=== PATIENT | male | born 1980 | race African-American/Black ===

== ENCOUNTER 2016-06-22 12:23 | Inpatient (IN) | payer BC, OTHER ==
--- NOTE | ~2016-06-22 | DS ---
Unit #: [id number] #: [id number] Patient: DARRIUS MORALES [id number] [address] [address] [id number] I MR#: [id number] NAME: DARRIUS MORALES ROOM: [facility] Age: Sex: M Admission Date: 06/22/2016 : 1980 Discharge Date: Attending Physician: Lilia Rodgers M.D. Referring Physician: Self Referral-Refer Use Only Primary Care Physician: [facility] DISCHARGE SUMMARY ADDENDUM FINAL DIAGNOSES 1. Hyperosmolar nonketotic hyperglycemia. 2. Newly diagnosed diabetes mellitus. 3. Acute kidney injury. 4. Alcohol abuse. DISCHARGE MEDICATIONS The plan was to discharge patient home with Invokana. However, Invokana really was too expensive for him. I put patient on Levemir and metformin 70 mg p.o. daily. Levemir will be 20 units subcu q.a.m. DISCHARGE INSTRUCTIONS 1. He will check his sugars q.i.d. 2. Follow up with PCP in the office for medication adjustment. CONDITION ON DISCHARGE He is discharged in stable condition. NOTE Endocrine consult has been deferred. Time spent coordinating discharge as a whole is about 35 minutes. Dictated by... Shy Alvarez/cindy TD: 06/24/2016 16:09 JOB #: [id number] Unit #: [id number] #: [id number] Patient: DARRIUS MORALES DISCHARGE SUMMARY X Radha Pleitez MD X DISCHARGE SUMMARY
--- NOTE | ~2016-06-22 | A ---
[facility] Nutrition Therapy DATE: 06/23/16 Patient: DARRIUS MORALES Physician: DENITA Address: [address] [place] [address] Room/Bed: [address], Zip: [place] [address] Admit Date: 06/22/16 Date of : [birth year] Height: 5 10 Weight: 240 109 NUTRITIONAL ASSESSMENT: REASON: NPO IN ICU ASSESSMENT, ALSO CONSULT RE: DM EDUCATION PT IS 35 Y.O. MALE ADMITTED FOR HIGH ACCU-CHECKS, MARY PMH: HTN, HLD, ETOH ABUSE, SMOKER, NEWLY DIAGNOSED DM AT THIS ADMIT Anthropometrics: 5'10", WT: 240# (109 KG), BMI: 34.4 Labs: GLU: 183, K+:3.2, NA+:131, ALT: 50, A1c: PENDING Meds: KCL, NACL I/O & Bowel function: 2665/751 Skin Integrity: NO KNOWN SKIN ISSUES Estimated Nutrition Needs: N/A Assessment: CHART REVIEWED AND EVENTS NOTED. PT SEEN FOR NPO IN ICU ASSESSMENT. PER RN AND CHART, PT NPO 2' DKA PROTOCOL, PLANS IN PLACE FOR DIET ADVANCEMENT LATER TODAY. OF NOTE, PT NEWLY DIAGNOSED DM AT THIS ADMIT. PT REPORTED GOOD PO INTAKE AND APPETITE, NO C/O N/V/D. PT REPORTS "I AM HUNGRY AND READY TO EAT". PT DENIES ANY RECENT WEIGHT LOSS. THIS RD PROVIDED WRITTEN AND VERBAL CC DIET EDUCATION. RD PROVIDED LIST OF FOODS TO AVOID/LIMIT AND FOODS TO EAT MORE OFTEN WELL ENCOURAGING CONSISTENT MEAL SCHEDULE. RD ALSO EMPHASIZED IMPORTANCE OF LIMITING SUGAR-SWEETENED BEVERAGES. PT REPORTS DRINKING SODAS AND TEA DAILY WELL ONLY CONSUMES 1-2 MEALS DAILY. PT ALSO STATED HE DRINKS A PINT OF ALCOHOL DAILY. PT VERBALIZED UNDERSTANDING OF THE TOPIC. PT REPORTED NO DIET QUESTIONS AT THIS TIME. RD TO REMAIN AVAILABLE AND FOLLOW. Dx: IMPAIRED GLYCEMIC CONTROL R/T CURRENT CONDITION, NEWLY DM AEB ELEVATED BLOOD SUGARS NOTED. -ALTERED NUTRIENT NEEDS R/T DX AEB NPO STATUS. Intervention: 1. NPO (PLANS TO ADVANCE DIET LATER TODAY) 2. RD CONSULT Monitoring, Evaluation and Goals: 1. PO INTAKE; PROVIDE AND CONSUME ADEQUATE NUTRITION W/NO C/O N/V/D (PO>50%) 2. LABS; GLU: IMPROVE GLYCEMIC CONTROL [facility] Therapy DATE: 06/23/16 Patient: DARRIUS MORALES Physician: DENITA Address: [address] [place] [address] Room/Bed: [address], Zip: [place] [address] Admit Date: 06/22/16 Date of : [birth year] Height: 5 10 Weight: 240 109 MONITOR: -DIET ADVANCEMENT -PO INTAKE/APPETITE -EDUCATION NEEDS -WEIGHTS -LABS (GLU, A1c) Recommendations: 1. REPLETE ELECTROLYTES (K+ LOW) 2. ONCE MEDICALLY FEASIBLE, ADVANCE DIET INDICATED TO CC+HH 2' PMH 3. RE-CONSULT RD IF FURTHER DIET EDUCATION REQUESTED/NEEDED RD WILL F/U PER PROTOCOL PT IS MILD/MODERATELY COMPROMISED Respectfully, FRANCIE QUISPE MS, RD, LD Food and Nutritional Services [facility] cc: client file
--- NOTE | ~2016-06-22 | CO ---
Unit #: [id number] #: [id number] Patient: DARRIUS MORALES [id number] [address] [place], [place] [address] [id number] I MR#: [id number] NAME: DARRIUS MORALES ROOM: 4 Age: 35 Sex: M Admission Date: 06/22/2016 : 1980 Attending Physician: Clover Carrington M.D. Primary Care Physician: [facility] Consultation Date: 06/23/2016 CONSULTATION REPORT HISTORY OF PRESENT ILLNESS Mr. Morales is a 35-year-old white male, who was admitted with uncontrolled diabetes and possible obstructive sleep apnea. He does complain of snoring, periodic breathing, and witnessed apnea at night. He does have daytime fatigue. He was admitted to [facility] for treatment and has been transferred to the floor since he is hemodynamically stable. PAST MEDICAL HISTORY Significant for alcohol abuse and hypertension. PAST SURGICAL HISTORY No surgical history. HOME MEDICATIONS Include losartan and thiazide. ALLERGIES He has no known allergies. SOCIAL HISTORY He smokes 3 cigarettes a day and pint of alcohol everyday and denies drug use. FAMILY HISTORY Positive for diabetes. REVIEW OF SYSTEMS Otherwise significant for the above including dyspnea and polyuria. PHYSICAL EXAMINATION VITAL SIGNS: He is afebrile. Vital signs are normal. Blood pressure 155/110. HEENT: Head and neck are significant for very poor posterior pharyngeal opening. MP 3. Pupils are round and reactive to light and accommodation. Nasal and oral mucosa are dry. NECK: Supple. There is no JVD or adenopathy in supraclavicular or cervical region. HEART: Sound normal. There is regular rate and rhythm without significant murmurs, rubs, or gallops. ABDOMEN: Soft, nontender. Bowel sounds were normal. There is no enlargement of the liver or spleen. EXTREMITIES: Show trace edema but no cyanosis or clubbing. NEUROLOGIC: He is awake, alert, and oriented. No gross motor deficits. Unit #: [id number] #: [id number] Patient: DARRIUS MORALES PSYCH: His mood and affect are appropriate. DIAGNOSTIC STUDIES LABORATORY RESULTS: On admission, his glucose was 626, BUN of 25, creatinine 1.5, sodium 125, potassium 4.2, bicarb 24. Hemoglobin of 15 and white count 8.8. IMAGING STUDIES: EKG and chest x-ray are pending at this time. IMPRESSION Probable obstructive sleep apnea. We will plan to see the patient as an outpatient in Dr. Muñiz's office for home sleep study and Auto PAP if positive. Dictated by... Shy Lao/riya TD: 06/24/2016 06:42 JOB #: [id number] CONSULTATION REPORT X Chris Frazier MD X CONSULTATION REPORT
--- NOTE | ~2016-06-22 | DS ---
Unit #: [id number] #: [id number] Patient: DARRIUS MORALES [id number] [place], [place] [address] [id number] I MR#: [id number] NAME: DARRIUS MORALES ROOM: [facility] Age: 35 Sex: M Admission Date: 06/22/2016 : 1980 Discharge Date: 06/25/2016 Attending Physician: Lilia Rodgers M.D. Referring Physician: Self Referral-Refer Use Only Primary Care Physician: Rust DISCHARGE SUMMARY DIAGNOSIS ON ADMISSION Diabetic ketoacidosis. DIAGNOSES ON DISCHARGE 1. Hyperosmolar, nonketotic hyperglycemia, resolved. 2. Newly diagnosed type 2 diabetes mellitus. 3. Acute kidney injury, resolved. 4. Alcohol abuse. 5. Tobacco abuse. 6. Possible obstructive sleep apnea syndrome. 7. Tobacco abuse. CONSULTATION Dr. Frazier in Pulmonology consultation. LABS AND PROCEDURES DONE The patient's creatinine was 1.2, sodium 134, potassium 4.0 yesterday. Total cholesterol is 264, triglycerides 391, LDL 142. Hemoglobin A1C was 11.8. WBC 7.4, hemoglobin 13.9, platelet count 263. The patient's AST was 38 and ALT was 50. HOSPITAL COURSE This 35-year-old male was admitted to [facility] with hyperglycemia. Details are as per admission H and P. The patient was treated with insulin drip. He had hyperosmolar nonketotic hyperglycemia. The patient responded well and his Accu-Cheks are normal. His hemoglobin A1C is 11.8. He was diagnosed with new onset type 2 diabetes mellitus and is started on Lantus. The patient is advised to follow up with primary care physician in four to five days. Acute kidney injury: It was secondary to hyperglycemia and responded to IV fluids and is resolved. Possible sleep apnea syndrome: The patient is advised to follow up with Dr. Muñiz regarding sleep apnea syndrome. Alcohol abuse: The patient was advised to follow up with [facility]. He stated that he will not drink anymore. Hyperlipidemia: The patient's ALT was 50 and, therefore, we did not start him on Lipitor because of his continued alcohol abuse. The patient is also a new onset diabetic. So, hopefully, once his diabetes is under control, his hyperlipidemia will improve. The patient was also refusing Lipitor because of the concerns of liver failure. He is advised to have a Unit #: [id number] #: [id number] Patient: DARRIUS MORALES lipid profile with his primary care physician in six weeks. Today, the patient is comfortable, is not in acute distress. CONDITION Stable. ACTIVITY As tolerated. MEDICATIONS 1. Lantus 20 units subcu q.a.m. 2. Losartan/hydrochlorothiazide 100/25 mg one p.o. daily. FOLLOWUP The patient is advised to follow up with primary care physician in four to five days. We will also schedule patient appointment with Dr. Mckeon prior to discharge. Patient advised to have appointment with Dr. Muñiz. The plan was discussed in detail with the patient who showed complete understanding. He showed understanding to the fact that he will need fasting lipid profile to follow up on his cholesterol and he also stated that he will quit drinking. Dictated by... Shy Parry/amari TD: 06/25/2016 13:04 JOB #: [id number] DISCHARGE SUMMARY X Lilia Rodgers MD X DISCHARGE SUMMARY
--- NOTE | ~2016-06-22 | CR72 ---
[facility] A Service of [facility] & [facility] RADIOLOGY TEXT RESULTS PATIENT: DARRIUS MORALES LOCATION: [facility] : [birth year] UNIT #: [id number] AGE: [address]: Guillaume Castillo MD SEX: M ORDER DR: [id number] [facility] [address] [place], [place] [address] [id number] MR#: [id number] Acc #: [id number] NAME: DARRIUS MORALES : 1980 SEX: M STUDY DATE/TIME: 06/22/2016 12:04 UNIT: [facility] ROOM: STUDY DESCRIPTION: CR Chest Single View Portable Attending Physician: Guillaume Castillo M.D. Referring Physician: Marilee Self Referred Ordering Physician: Timothy Garcia M.D. Primary Care Physician: [facility] MEDICAL IMAGING REPORT This report is preliminary unless electronic signature is present EXAM Chest, single view, portable. INDICATION Cough. Hypertension. Hyperglycemia. FINDINGS Single, portable, AP view of the chest compared to 04/10/2015. The heart and mediastinal contours are normal. The lungs are clear. No pleural effusion. IMPRESSION Negative chest radiograph. Dictated by... Ancelmo Wiley M.D. THIS IS AN ELECTRONICALLY VERIFIED REPORT Ancelmo Wiley M.D. at 06/22/2016 3:15 PM RICHELLE/milagro TD: 06/22/2016 15:12 JOB #: [id number] MEDICAL IMAGING REPORT COPY
--- NOTE | ~2016-06-22 | HP ---
Unit #: [id number] #: [id number] Patient: DARRIUS MORALES [id number] [address] [place], [place] [address] [id number] MR#: [id number] NAME: DARRIUS MORALES ROOM: Age: 35 Sex: M Admission Date: 06/22/2016 : 1980 Attending Physician: Guillaume Castillo M.D. Referring Physician: Self Referral-Refer Use Only Primary Care Physician: [facility] HISTORY AND PHYSICAL CHIEF COMPLAINT Sent by [facility] at their office. HISTORY OF PRESENT ILLNESS The patient is a 35-year-old male with history of hypertension and noncompliance and alcohol abuse, brought to the emergency room complaining of a high blood sugar. The patient has been having polydipsia, no polyuria for the last one week associated with nonproductive cough and fatigue. The patient has a strong family history of diabetes on both parent's sides. The patient stated the patient was going to the bathroom initially 16-18 times and drinking plenty of water for the last few days. Denies any fever, chills, nausea, vomiting or abdominal or chest pain. The patient was found to be in DKA with sugars running more than 626 with anion gap of 5. The patient has been admitted for the above reasons. PAST MEDICAL HISTORY History of hypertension. PAST SURGICAL HISTORY None. HOME MEDICATIONS Blood pressure medications of losartan and hydrochlorothiazide. ALLERGIES No known drug allergies. SOCIAL HISTORY He smokes 3 cigarettes per day. Drinks a pint of alcohol every day and denies any illicit drug abuse. FAMILY HISTORY Positive for diabetes. REVIEW OF SYSTEMS A 14-point review of systems performed and only pertinent positive findings are described above, remaining are negative. PHYSICAL EXAMINATION VITAL SIGNS: Temperature 98.2, pulse 130, respiratory rate 16, blood pressure 155/110, saturating 94% at room air. GENERAL: Patient is lying on the bed not in acute distress. HEENT: Atraumatic, normocephalic. Pupils equal, round, and reactive to light and accommodation. Dry mucous membrane. Unit #: [id number] #: [id number] Patient: DARRIUS MORALES NECK: Supple. No JVD. LUNGS: Decreased air entry at the bases. HEART: Regular rate and rhythm. ABDOMEN: Soft, positive bowel sounds. EXTREMITIES: No cyanosis, no clubbing. NEUROLOGIC: Alert, awake, oriented. No gross focal motor deficit. PSYCHIATRIC: Mood and affect are appropriate. DIAGNOSTIC STUDIES LABORATORY: Glucose 626, BUN 25, creatinine 1.5, sodium 125, potassium 4.2, chloride 89, bicarb 24, calcium 9.9, total protein 8.4, AST 38, ALT 50, alkaline phosphatase 58. Lipase 34. Beta hydroxybutyrate is 0.24. WBC 8.1, hemoglobin 15, hematocrit 43, platelets 290. Flu screen is negative. Urinalysis shows more than 1000 glucose. IMAGING: Chest x-ray not done. CARDIOVASCULAR: EKG not done. ASSESSMENT AND PLAN 1. Diabetic ketoacidosis. 2. New-onset diabetes mellitus. 3. Acute kidney injury. 4. Pseudohyponatremia. PLAN 1. Admit patient to inpatient ICU. 2. Continue with IV fluids and insulin drip. 3. Continue DKA protocol. 4. Check hemoglobin A1c. 5. Check chest x-ray. 6. Check EKG if not done. 7. Rule out infections. 8. Repeat labs. 9. Further recommendations will follow. Dictated by Shy Padilla TD: 06/22/2016 16:17 JOB #: [id number] HISTORY AND PHYSICAL X X HISTORY AND PHYSICAL
--- NOTE | ~2016-06-22 | EKG ---
PATIENT: DARRIUS MORALES UNIT #: [id number] Ventricular Rate: 106 BPM Atrial Rate: 106 BPM P-R Interval: 150 ms QRS Duration: 86 ms Q-T Interval: 354 ms QTC Calculation(Bezet): 470 ms P [place]: 46 degrees Calculated R [place]: 49 degrees Calculated T [place]: 12 degrees Diagnosis Line: Sinus tachycardia Diagnosis Line: Otherwise normal ECG Diagnosis Line: When compared with ECG of 10-APR-2015 00:26, Diagnosis Line: T wave inversion now evident in Inferior leads Diagnosis Line: Confirmed by CAMERON CAMPBELL MD ([id number]) on Diagnosis Line: 06/25/2016 12:00:50 AM INTERPRETING MD: ADRIAN CARDOSO
[2016-06-22 12:23] LABS: URINE SOURCE CLEAN CATCH
[~2016-06-22 12:23] MED LIST: OMEPRAZOLE40 MG PO; PEPCID40 MG PO; VISTARIL PO
[2016-06-22 12:29] LABS: URINE APPEARANCE CLEAR; URINE BILIRUBIN NEG (NEG); URINE BLOOD TRACE (NEG); URINE COLOR YELLOW; URINE GLUCOSE >1000 MG/DL (NEG); URINE KETONE NEG (NEG); URINE LEUKOCYTE ESTERASE NEG (NEG); URINE NITRATE NEG (NEG); URINE PROTEIN NEG (NEG); URINE SPECIFIC GRAVITY 1.037 (1.003-1.035); URINE UROBILINOGEN 0.2 MG/DL (NEG)
[2016-06-22 12:31] LABS: URBCS1 AUWI 0-2 /[HPF] (0-2); URINE BACTERIA AUWI NEG (NEGATIVE); URINE SQUAMOUS EPITHELIAL CELL NONE SEEN /[HPF]; UWBCS1 AUWI 0-2 (0-5)
[2016-06-22 12:32] LABS: BASOPHIL# 0.1 X10e3 (0-0.3); BASOPHIL% 1.2 % (0-2.5); EOSINOPHIL# 0.1 X10e3 (0-0.7); EOSINOPHIL% 1.3 % (0.0-7.0); LYMPHOCYTE# 2.2 X10e3 (1.0-3.5); LYMPHOCYTE% 27.8 % (17.0-45.0); MEAN CELL VOLUME 81.4 FL (83-96); MEAN CORPUSCULAR HEMOGLOBIN 28.4 PG (28-34); MEAN CORPUSCULAR HGB CONC 34.9 g/dL (30-36); MEAN PLATELET VOLUME 8.4 FL (6.5-11.5); MONOCYTE# 0.7 X10e3 (0-1.0); MONOCYTE% 9.1 % (3.0-12.0); NEUTROPHIL# 4.9 X10e3 (1.5-7.1); NEUTROPHIL% 60.6 % (40-75); PLATELET COUNT 290 X10e3 (140-420); RED BLOOD COUNT 5.29 X10e (3.90-5.60); RED CELL DISTRIBUTION WIDTH 12.9 % (11.0-15.5); WHITE BLOOD COUNT 8.1 X10e3 (4.0-10.5)
[2016-06-22 12:34] LABS: DIFF IND NO
[2016-06-22 12:39] LABS: CULTURE INDICATED? NO
[2016-06-22 12:40] LABS: INFLUENZA A NEG (NEG); INFLUENZA B NEG (NEG)
[2016-06-22 13:52] LABS: ALBUMIN SERUM 4.8 g/dL (3.5-5.0); ALKALINE PHOSPHATASE 58 U/L (32-92); ALT (SGPT) 50 U/L (10-40); AST (SGOT) 38 U/L (10-42); BETA HYDROXYBUTYRATE 0.24 MMOL/L (0.02-0.27); BILIRUBIN,TOTAL 0.4 mg/dL (0.2-2.0); BLOOD UREA NITROGEN 25 mg/dL (9-23); BUN/CREATININE RATIO 16.66; CALCIUM SERUM 9.9 mg/dL (8.4-10.2); CARBON DIOXIDE 24 mmol/L (22-31); CHLORIDE 89 mmol/L (100-111); CREATININE SERUM 1.5 mg/dL (0.6-1.4); GLOM FILT RATE Estimated ABOVE60 mL/min (>60); POTASSIUM 4.2 mmol/L (3.5-5.1); PROTEIN TOTAL SERUM 8.4 g/dL (6.0-8.3)
[2016-06-22 13:53] LABS: BILIRUBIN, DIRECT <0.1 mg/dL (0.0-0.2); BILIRUBIN,INDIRECT 0.3 mg/dL (0.0-0.9); GLUCOSE FASTING 626 mg/dL (70-110); SODIUM 125 mmol/L (135-145)
[2016-06-22] MEDS ORDERED: LOSARTAN-HCTZ1 EAC1 PO (14:44)
[2016-06-22 16:46] LABS: ARTERIAL BLOOD GAS CARBOXY HB 0.3 %sat (0.0-9.0); ARTERIAL BLOOD GAS HCO3 27.1 mmol/L; ARTERIAL BLOOD GAS MET HB 0.6 %sat (0.0-2.0); ARTERIAL BLOOD GAS PO2 80.7 mmHg (80.0-100); ARTERIAL BLOOD GAS pH 7.408 (7.350-7.450)
[2016-06-22 16:47] LABS: ARTERIAL BLOOD GAS ALLEN TEST NORMAL; ARTERIAL BLOOD GAS ART SITE RIGHT RADIAL; ARTERIAL DRAW? YES
[2016-06-22 17:17] LABS: AMYLASE 9 U/L (0-46); BLOOD UREA NITROGEN 22 mg/dL (9-23); CALCIUM SERUM 9.5 mg/dL (8.4-10.2); CARBON DIOXIDE 25 mmol/L (22-31); CHLORIDE 95 mmol/L (100-111); CREATININE SERUM 1.1 mg/dL (0.6-1.4); GLOM FILT RATE Estimated ABOVE60 mL/min (>60); GLUCOSE FASTING 341 mg/dL (70-110); LIPASE 35 U/L (22-51); POTASSIUM 3.8 mmol/L (3.5-5.1); SODIUM 132 mmol/L (135-145)
[2016-06-22] MEDS ORDERED: LIPITOR20 MG PO (18:18)
[2016-06-22 21:56] LABS: BLOOD UREA NITROGEN 20 mg/dL (9-23); BUN/CREATININE RATIO 18.18; CARBON DIOXIDE 27 mmol/L (22-31); CHLORIDE 101 mmol/L (100-111); CREATININE SERUM 1.1 mg/dL (0.6-1.4); GLOM FILT RATE Estimated ABOVE60 mL/min (>60); GLUCOSE FASTING 191 mg/dL (70-110); POTASSIUM 3.4 mmol/L (3.5-5.1); SODIUM 132 mmol/L (135-145)
[2016-06-23 02:28] LABS: BASOPHIL# 0.1 X10e3 (0-0.3); BASOPHIL% 1.7 % (0-2.5); EOSINOPHIL# 0.2 X10e3 (0-0.7); EOSINOPHIL% 2.7 % (0.0-7.0); HEMATOCRIT 39.8 % (38.0-50.0); HEMOGLOBIN 13.9 gm/dL (13.0-16.0); LYMPHOCYTE# 2.6 X10e3 (1.0-3.5); LYMPHOCYTE% 35.7 % (17.0-45.0); MEAN CELL VOLUME 80.2 FL (83-96); MEAN CORPUSCULAR HEMOGLOBIN 28.1 PG (28-34); MEAN PLATELET VOLUME 7.7 FL (6.5-11.5); MONOCYTE# 0.6 X10e3 (0-1.0); MONOCYTE% 7.9 % (3.0-12.0); NEUTROPHIL# 3.8 X10e3 (1.5-7.1); PLATELET COUNT 263 X10e3 (140-420); RED BLOOD COUNT 4.96 X10e (3.90-5.60); RED CELL DISTRIBUTION WIDTH 12.8 % (11.0-15.5); WHITE BLOOD COUNT 7.4 X10e3 (4.0-10.5)
[2016-06-23 02:30] LABS: DIFF IND NO
[2016-06-23 03:29] LABS: BLOOD UREA NITROGEN 17 mg/dL (9-23); BUN/CREATININE RATIO 15.45; CALCIUM SERUM 8.8 mg/dL (8.4-10.2); CARBON DIOXIDE 25 mmol/L (22-31); CHLORIDE 101 mmol/L (100-111); CREATININE SERUM 1.1 mg/dL (0.6-1.4); GLOM FILT RATE Estimated ABOVE60 mL/min (>60); GLUCOSE FASTING 183 mg/dL (70-110); POTASSIUM 3.2 mmol/L (3.5-5.1); SODIUM 131 mmol/L (135-145)
[2016-06-23 09:10] LABS: BLOOD UREA NITROGEN 15 mg/dL (9-23); BUN/CREATININE RATIO 10.71; CALCIUM SERUM 8.8 mg/dL (8.4-10.2); CARBON DIOXIDE 24 mmol/L (22-31); CHLORIDE 95 mmol/L (100-111); CREATININE SERUM 1.4 mg/dL (0.6-1.4); GLOM FILT RATE Estimated ABOVE60 mL/min (>60); GLUCOSE FASTING 185 mg/dL (70-110); POTASSIUM 3.7 mmol/L (3.5-5.1); SODIUM 130 mmol/L (135-145)
[2016-06-23 15:25] LABS: BLOOD UREA NITROGEN 18 mg/dL (9-23); CALCIUM SERUM 8.7 mg/dL (8.4-10.2); CARBON DIOXIDE 24 mmol/L (22-31); CHLORIDE 101 mmol/L (100-111); CREATININE SERUM 1.2 mg/dL (0.6-1.4); GLOM FILT RATE Estimated ABOVE60 mL/min (>60); GLUCOSE FASTING 289 mg/dL (70-110); POTASSIUM 3.8 mmol/L (3.5-5.1); SODIUM 129 mmol/L (135-145)
[2016-06-23 22:06] LABS: BLOOD UREA NITROGEN 21 mg/dL (9-23); CALCIUM SERUM 8.5 mg/dL (8.4-10.2); CARBON DIOXIDE 24 mmol/L (22-31); CHLORIDE 103 mmol/L (100-111); CREATININE SERUM 1.4 mg/dL (0.6-1.4); GLOM FILT RATE Estimated ABOVE60 mL/min (>60); GLUCOSE FASTING 346 mg/dL (70-110); POTASSIUM 3.6 mmol/L (3.5-5.1); SODIUM 129 mmol/L (135-145)
[2016-06-24 04:29] LABS: BLOOD UREA NITROGEN 17 mg/dL (9-23); BUN/CREATININE RATIO 14.16; CALCIUM SERUM 8.8 mg/dL (8.4-10.2); CARBON DIOXIDE 23 mmol/L (22-31); CHLORIDE 104 mmol/L (100-111); CHOLESTEROL 264 mg/dL (0-200); CREATININE SERUM 1.2 mg/dL (0.6-1.4); GLOM FILT RATE Estimated ABOVE60 mL/min (>60); GLUCOSE FASTING 218 mg/dL (70-110); HDL CHOLESTEROL 44 mg/dL (29-75); LDL/HDL RATIO 3 RATIO (0-4); MAGNESIUM 2.2 mg/dL (1.6-3.0); SODIUM 134 mmol/L (135-145); TRIGLYCERIDES 391 mg/dL (10-160)
[2016-06-24 04:34] LABS: LDL CHOLESTEROL 142 mg/dL ([, -130])
[2016-06-24] MEDS ORDERED: LEVEMIR FL100 UNIT/1 SUBQ (16:03)
[2016-06-24] MEDS ORDERED: LIPITOR20 MG PO (16:03)
[2016-06-24] MEDS ORDERED: GLUCOMETER DEX1 PKT IN (16:04)
[2016-06-24] MEDS ORDERED: GLUCOMETER DE1 STRIP IN (16:04)
[2016-06-24] MEDS ORDERED: ASPIRIN81 MG PO (16:41)
[2016-06-24] MEDS ORDERED: METFORMIN HCL500 M3 PO (16:47)
[2016-06-24] MEDS ORDERED: APAP325 M1 PO (16:49)
[2016-06-25] MEDS ORDERED: LANTUS SOLOSTAR3 ML SUBQ (12:59)
== END 2016-06-25 14:00 | disposition home or self-care (01) | DRG 638 ==
LOC: CED 12:23 → CEDOF 15:54 → CICCU3 18:04 → C4C 06-23 16:55
PROVIDERS: Emergency Medicine; Internal Medicine
PROC: 3E0234Z Introduction of Serum, Toxoid and Vaccine into Muscle, Percutaneous Approach (ICD-10-PCS; principal; 2016-06-24)
DX: E11.00 Type 2 diabetes mellitus with hyperosmolarity without nonketotic hyperglycemic-hyperosmolar coma (NKHHC) (principal); N17.9 Acute kidney failure, unspecified; E87.1 Hypo-osmolality and hyponatremia; F10.10 Alcohol abuse, uncomplicated; F17.210 Nicotine dependence, cigarettes, uncomplicated; G47.33 Obstructive sleep apnea (adult) (pediatric); E78.5 Hyperlipidemia, unspecified; I10 Essential (primary) hypertension; Z91.19 Patient's noncompliance with other medical treatment and regimen; Z83.3 Family history of diabetes mellitus; Z23 Encounter for immunization; E66.9 Obesity, unspecified
CPT/HCPCS: 36415; 36600; 71010; 80048; 80061; 80076; 81003; 82010; 82150; 82232; 82803; 82947; 83036; 83690; 83735; 84100; 85025; 87040; 87804; 90688; 93005; 96360; 99285; J1650; J1815